=== PATIENT | male | born 1970 | race Caucasian/White ===

== ENCOUNTER → 2019-11-10 09:53 | Outpatient (CLI) | payer BC, SELFPAY ==
[2019-09-16 08:48] VITALS: BMI 26.1
--- NOTE | 2019-11-10 09:59 | US_ITS ---
STUDY: ABDOMINAL ULTRASOUND - RIGHT UPPER QUADRANT REASON FOR VISIT: Male, 49 years old ELEVATED LFTS TECHNIQUE: Ultrasound evaluation of the right upper quadrant was performed with real-time and static starkey-scale imaging. TECHNICAL QUALITY: Adequate. COMPARISON: None. FINDINGS: Liver: The liver measures 16 cm. There is normal echogenicity of the liver. The bile ducts are within normal limits. There is hepatic color flow. The direction of portal flow is hepatopetal. There is no demonstrated mass lesion. Gallbladder: Normal distended gallbladder. The gallbladder wall measures 2.9 mm. There is a negative sonographic Garcia''s sign. There is no pericholecystic fluid. There are no gallstones. Common Bile Duct (C.B.D.): The common bile duct measures 5.4 mm. Pancreas: There is normal echogenicity of the visualized pancreas. There is no demonstrated pancreatic mass or cyst. Right Kidney: Normal size of the right kidney. The right kidney measures 11.1 x 4.8 x 4.3 cm. Normal renal cortex. The right cortex measures 1.2 cm. There is no demonstrated renal mass or cyst. There is no right hydronephrosis. US/Liver IMPRESSION: 1. No hepatic masses or biliary dilation. 2. No gallstones or biliary obstruction. Electronically Signed: Kristian Beebe MD ([place]) at 12:52 EST , Service support ,
== END ==
PROVIDERS: Referring Provider Internal Medicine Endocrinology, Diabetes & Metabolism; Visit Provider Internal Medicine Endocrinology, Diabetes & Metabolism
DX: R94.5 Abnormal results of liver function studies (principal)
CPT/HCPCS: 76705

== ENCOUNTER → 2020-08-20 | Outpatient (CLI) | payer BC, SELFPAY ==
[2019-09-16 08:48] VITALS: BMI 26.1
== END | disposition home or self-care (01) ==
LOC: LABSPEC 12:19
PROVIDERS: Visit Provider Family Medicine
DX: Z12.5 Encounter for screening for malignant neoplasm of prostate (principal)
CPT/HCPCS: 84153; G0103

== ENCOUNTER → 2021-01-17 14:53 | Outpatient (CLI) | payer BC, SELFPAY ==
[2019-09-16 08:48] VITALS: BMI 26.1
[2021-01-17 17:53] LABS: Vitamin D,25 Hydroxy 30.6 ng/mL
[2021-01-17 18:06] LABS: CRP < 2.90 mg/L (0.0-3.0)
[2021-01-20 16:08] LABS: Endomysial Antibody IgA Negative (Negative)
[2021-01-20 16:45] LABS: Immunoglobulin A 348 mg/dL (90-386); t-Transglutaminase IgA <2 U/mL (0-3)
== END ==
PROVIDERS: PCP Family Medicine; Referring Provider Internal Medicine Gastroenterology; Visit Provider Internal Medicine Gastroenterology
DX: R19.7 Diarrhea, unspecified (principal)
CPT/HCPCS: 36415; 82306; 82784; 83516; 86140; 86255

== ENCOUNTER 2025-06-28 06:43 | Outpatient (CLI) | payer BC, SELFPAY ==
--- OUTSIDE RECORDS SUMMARY | 2025-06-28 06:47 | XMS RPT_ITS | CCD ---
Author Organization [facility] Team Providers Care Resistance Brazer Name Role Phone DEANGELO BATES MD Primary Care Physician DEANGELO BATES MD Attending Unavailable DEANGELO BATES MD Primary Care Unavailable DEANGELO BATES MD Primary Care Unavailable DEANGELO BATES MD Attending Unavailable DEANGELO BATES MD Attending Unavailable DEANGELO BATES MD Primary Care Unavailable Denagelo Bates Primary Care Unavailable BRITTNY HOLLINS Referring Unavailable BRITTNY HOLLINS Attending Unavailable DEANGELO BATES MD Attending Unavailable DEANGELO BATES MD Primary Care Unavailable DEANGELO BATES MD Primary Care Unavailable CONNIE SCHWARZ MD Attending Unavailable Medications Current Medications Medication Drug Class(es) Dates Sig (Normalized) Sig (Original) levothyroxine sodium 0.15 mg oral tablet (5 sources) l-Thyroxine Start: 06-03-2020 Synthroid 150 mcg (0.15 mg) oral tablet Dose : 150 mcg = 1 tab(s), Oral, qDay, # 90 tab(s), 0 Refill(s) Start Date: 06/03/20 Status: Ordered Medication Dispense Status: Completed Quantity: 90.0 Unit: tab(s) Total Allowed Fills: 1 Fills Dispensed: 0 magnesium oxide 250 mg oral tablet (3 sources) Start: 05-18-2024 Magnesium 250 mg tablet Dose : 250 mg = 1 tab(s), Oral, qDay, 0 Refill(s) Start Date: 05/18/24 Status: Ordered Medication Dispense Status: Completed Total Allowed Fills: 1 Fills Dispensed: 0 Misc Medication (2 sources) Start: 05-18-2024 Misc Medication 0 Refill(s), 85.3 Start Date: 05/18/24 Status: Ordered montelukast 10 mg oral tablet (1 source) Leukotriene Receptor Antagonist Start: 03-14-2021 Singulair 10 mg oral tablet Dose : 10 mg = 1 tab(s), Oral, qPM, # 30 tab(s), 5 Refill(s), [facility]acy: [id number], Allergic rhinitis Chronic GERD, 179.5, cm, 03/14/21 13:49:00 EDT, Height, kg, 03/14/21 13:49:00 EDT, Dosing Weight Start Date: 03/14/21 Status: Ordered Omeprazole (5 sources) Proton Pump Inhibitor Start: 06-03-2020 take 1 dose by mouth once daily as needed for gastroesophageal reflux disease omeprazole Oral, qDay, PRN Reflux, 0 Refill(s) Start Date: 06/03/20 Status: Ordered Medication Dispense Status: Completed Total Allowed Fills: 1 Fills Dispensed: 0 Start: 06-03-2020 omeprazole Ora l, qDay, PRN Reflux, 0 Refill(s) Start Date: 06/03/20 Status: Ordered sildenafil 100 mg oral tablet (3 sources) Phosphodiesterase 5 Inhibitor Start: 05-24-2025 sildenafil 100 mg or al tablet Dose : 100 mg = 1 tab(s), Oral, qDay, # 5 tab(s), 5 Refill(s), Pharmacy: [facility]/pharmacy #[id number], Well adult exam Chronic GERD, 180, cm, 05/24/25 8:32:00 EDT, Height, kg, 05/24/25 8:32:00 EDT, Dosing Weight Start Date: 05/24/25 Status: Ordered Medication Dispense Status: Completed Quantity: 5.0 Unit: tab(s) Total Allowed Fills: 6 Fills Dispensed: 0 Indications: Encounter for general adult medical examination without abnormal findings; Gastro-esophageal reflux disease without esophagitis; Start: 05-18-2024 sildenafil 100 mg oral tablet Dose : 100 mg = 1 tab(s), Oral, qDay, # 5 tab(s), 5 Refill(s), Pharmacy: [facility]/pharmacy #[id number], Well adult exam Chronic GERD, 181.5, cm, 05/18/24 7:51:00 EDT, Height, kg, 05/18/24 7:51:00 EDT, Dosing Weight Start Date: 05/18/24 Status: Ordered tadalafil 5 mg oral tablet (3 sources) Phosphodiesterase 5 Inhibitor Start: 05-24-2025 tadalafil 5 mg oral tablet Dose : 5 mg = 1 tab(s), Oral, qDay, # 30 tab(s), 11 Refill(s), [id number] Well adult exam Chronic GERD, 180, cm, 05/24/25 8:32:00 EDT, Height, kg, 05/24/25 8:32:00 EDT, Dosing Weight Start Date: 05/24/25 Status: Ordered Medication Dispense Status: Completed Quantity: 30.0 Unit: tab(s) Total Allowed Fills: 12 Fills Dispensed: 0 Indications: Encounter for general adult medical examination without abnormal findings; Gastro-esophageal reflux disease without esophagitis; Start: 05-18-2024 tadalafil 5 mg oral tablet Dose : 5 mg = 1 tab(s), Oral, qDay, # 30 tab(s), 11 Refill(s), [id number] Well adult exam Chronic GERD, 181.5, cm, 05/18/24 7:51:00 EDT, Height, kg, 05/18/24 7:51:00 EDT, Dosing Weight Start Date: 05/18/24 Status: Ordered tamsulosin hydrochloride 0.4 mg oral capsule (1 source) alpha-Adrenergic Jaylene Start: 07-26-2024 tamsu losin 0.4 mg oral capsule Dose : 0.4 mg = 1 cap(s), Oral, qDay, # 30 cap(s), 0 Refill(s), [id number], 181.5, cm, 05/18/24 7:51:00 EDT, Height, kg, 05/18/24 7:51:00 EDT, Dosing Weight Start Date: 07/26/24 Status: Ordered turmeric extract 500 mg oral capsule (4 sources) Start: 04-24-2022 turmeric 500 m g oral capsule Dose : 500 mg = 1 cap(s), Oral, Daily, 0 Refill(s) Start Date: 04/24/22 Status: Ordered Medication Dispense Status: Completed Total Allowed Fills: 1 Fills Dispensed: 0 Vitamin D3 (4 sources) Start: 04-24-2022 Vitamin D3 Dos e : 100 mcg = 1 tab(s), Oral, Daily, 0 Refill(s) Start Date: 04/24/22 Status: Ordered Medication Dispense Status: Completed Total Allowed Fills: 1 Fills Dispensed: 0 Start: 04-24-2022 Vitamin D3 Dos e : 100 mcg = 1 tab(s), Oral, Daily, 0 Refill(s) Start Date: 04/24/22 Status: Ordered Completed/Discontinued Medications Medication Drug Class(es) Dates Sig (Normalized) Sig (Original) Multi-Day Plus Minerals (5 sources) Start: 10-07-2020 take 1 dose by mouth once daily Multi-Day Plus Minerals Oral, qDay, 0 Refill(s) Start Date: 10/07/20 Status: Suspended Medication Dispense Status: Completed Total Allowed Fills: 1 Fills Dispensed: 0 Start: 10-07-2020 Multi-Day Plus Minerals Oral, qDay, 0 Refill(s) Start Date: 10/07/20 Status: Suspended Start: 10-07-2020 Multi-Day Plus Minerals Oral, qDay, 0 Refill(s) Start Date: 10/07/20 Status: Ordered Problems Problem Classification Problem Date Documented Da te Episodic/Chronic Cardiac dysrhythmias (5 sources) Palpitations 06-03-2020 Episodic Esophageal disorders (11 sources) Gastro-esophageal reflux disease with esophagitis; Translations: [Gastroesophageal reflux disease] 06-03-2020 Chronic Malaise and fatigue (5 sources) Fatigue 06-03-2020 Episodic Other connective tissue disease (1 source) Bursitis of left shoulder 12-25-2024 Episodic Other gastrointestinal disorders (6 sources) Irritable bowel syndrome; Translations: [Irritable bowel syndrome without diarrhea] 06-03-2020 Chronic Other inflammatory condition of skin (5 sources) Pityriasis rosea 06-03-2020 Chronic Other lower respiratory disease (3 sources) Snoring 08-12-2023 Episodic Other male genital disorders (3 sources) Impotence 05-18-2024 Chronic Other non-traumatic joint disorders (4 sources) Shoulder pain 06-17-2022 Episodic Other screening for suspected conditions (not mental disorders or infectious disease) (5 sources) Liver function tests abnormal 06-03-2020 Episodic Other upper respiratory disease (6 sources) Allergic rhinitis; Translations: [Allergic rhinitis, unspecified] 06-03-2020 Chronic Residual codes; unclassified (3 sources) Obstructive sleep apnea syndrome 05-18-2024 Chronic Residual codes; unclassified (1 source) Family history of ischemic heart disease and other diseases of the circulatory system; Translations: [Family history of ischemic heart disease and other diseases of the circulatory system] Onset: 06-12-2025 Episodic Spondylosis; intervertebral disc disorders; other back problems (4 sources) Cervical radiculitis 06-17-2022 Episodic Sprains and strains (1 source) Strain of neck muscle 12-25-2024 Episodic Thyroid disorders (6 sources) Hypothyroidism; Translations: [Hypothyroidism, unspecified] 06-03-2020 Chronic Unclassified (3 sources) Patient encounter status 08-12-2023 Results Test Name Value Interpretation Reference Range Facility .Auto Diffon 06-21-2025 Basophil, Absolute 0.0 10 3/mcL Normal 0.0-0.3 [facility] Comment on above: Performed By: #### G FR, VIDH, ANEU, CMP, CBC, MG, LIPID, ADIFF, PSA #### [address] [address] Basophils/100 WBC (Bld) 0.7 % Normal 0.0-2.[address] [facility] Comment on above: Performed By: #### G FR, VIDH, ANEU, CMP, CBC, MG, LIPID, ADIFF, PSA #### [address] [address] Eosinophil, Absolute 0.1 10 3/mcL Normal 0.0-0.7 [facility] Comment on above: Performed By: #### G FR, VIDH, ANEU, CMP, CBC, MG, LIPID, ADIFF, PSA #### [address] [address] Eosinophils/100 WBC (Bld) 2.7 % Normal 0.0-6.[address] [facility] Comment on above: Performed By: #### G FR, VIDH, ANEU, CMP, CBC, MG, LIPID, ADIFF, PSA #### [address] [address] Lymphocyte, Absolute 1.5 10 3/mcL Normal 0.9-4.3 [facility] Comment on above: Performed By: #### G FR, VIDH, ANEU, CMP, CBC, MG, LIPID, ADIFF, PSA #### [address] [address] Lymphocytes/100 WBC (Bld) 33.8 % Normal 20.0-40.[address] [facility] Comment on above: Performed By: #### G FR, VIDH, ANEU, CMP, CBC, MG, LIPID, ADIFF, PSA #### [address] [address] Monocyte, Absolute 0.4 10 3/mcL Normal 0.1-1.4 [facility] Comment on above: Performed By: #### G FR, VIDH, ANEU, CMP, CBC, MG, LIPID, ADIFF, PSA #### [address] [address] Monocytes/100 WBC (Bld) 10.3 % Normal 2.0-13.[address] [facility] Comment on above: Performed By: #### G FR, VIDH, ANEU, CMP, CBC, MG, LIPID, ADIFF, PSA #### [address] [address] Neutrophils/100 WBC (Bld) 52.5 % Normal 50.0-75.[address] [facility] Comment on above: Performed By: #### G FR, VIDH, ANEU, CMP, CBC, MG, LIPID, ADIFF, PSA #### [address] [address] .GFRon 06-21-2025 Estimated Glomerular Filtration Rate 85 ml/min/1.73sqm Normal [facility] Comment on above: Result Comment: Stages of Chronic Kidney Disease (CKD) Stage Description eGFR(ml/min/1.73 sq.m.) CKD 1 Normal kidney function or >=90 normal kindney function with possible kidney damage (ex. Proteinuria) CKD 2 Kidney damage with mild loss 60-89 of kidney function CKD 3a Mild to moderate loss of kidney 45-59 function CKD 3b Moderate to severe loss of 30-44 of kindey function CKD 4 Severe loss of kidney function 15-29 CKD 5 Kidney failure <15 Note: (go live 2024) the eGFR calculation was updated to the 2020 CKD-EPI creatinine equation without a race factor to calculate the eGFR results. Performed By: #### G FR, VIDH, ANEU, CMP, CBC, MG, LIPID, ADIFF, PSA #### [place] [id number] .NEUABSon 06-21-2025 Neutrophil, Absolute 2.3 10 3/mcL Normal 2.3-8.1 [facility] Comment on above: Performed By: #### G FR, VIDH, ANEU, CMP, CBC, MG, LIPID, ADIFF, PSA #### [place] [address] CBCon 06-21-2025 Erythrocyte distribution width (RBC) [Ratio] 13.0 % Normal 11.5-15.[address] [facility] Comment on above: Performed By: #### G FR, VIDH, ANEU, CMP, CBC, MG, LIPID, ADIFF, PSA #### [place] [address] Hematocrit (Bld) [Volume fraction] 42.9 % Normal 40.0-52.[address] [facility] Comment on above: Performed By: #### G FR, VIDH, ANEU, CMP, CBC, MG, LIPID, ADIFF, PSA #### [place] [address] Hgb 14.4 G/dL Normal 13.0-17.[address] [facility] Comment on above: Performed By: #### G FR, VIDH, ANEU, CMP, CBC, MG, LIPID, ADIFF, PSA #### [place] [address] MCH (RBC) [Entitic mass] 29.7 pg Normal 27.0-33.[address] [facility] Comment on above: Performed By: #### G FR, VIDH, ANEU, CMP, CBC, MG, LIPID, ADIFF, PSA #### [place] [address] MCHC 33.5 G/dL Normal 32.0-36.[address] [facility] Comment on above: Performed By: #### G FR, VIDH, ANEU, CMP, CBC, MG, LIPID, ADIFF, PSA #### [address] [address] MCV (RBC) [Entitic vol] 88.7 fL Normal 81.0-100.[address] [facility] Comment on above: Performed By: #### G FR, VIDH, ANEU, CMP, CBC, MG, LIPID, ADIFF, PSA #### [address] [address] Platelet 188 10 3/mcL Normal 150-[address] [facility] Comment on above: Performed By: #### G FR, VIDH, ANEU, CMP, CBC, MG, LIPID, ADIFF, PSA #### [place] [address] Platelet mean volume (Bld) [Entitic vol] 8.7 fL Normal 6.4-10.[address] [facility] Comment on above: Performed By: #### G FR, VIDH, ANEU, CMP, CBC, MG, LIPID, ADIFF, PSA #### [address] [address] RBC 4.84 10 6/mcL Normal 4.50-6.[address] [facility] Comment on above: Performed By: #### G FR, VIDH, ANEU, CMP, CBC, MG, LIPID, ADIFF, PSA #### [address] [address] WBC 4.4 10 3/mcL Low 4.5-10.[address] [facility] Comment on above: Performed By: #### G FR, VIDH, ANEU, CMP, CBC, MG, LIPID, ADIFF, PSA #### [address] [address] CMPon 06-21-2025 Albumin Level 3.4 G/dL Low 3.5-5.[address] [facility] Comment on above: Performed By: #### G FR, VIDH, ANEU, CMP, CBC, MG, LIPID, ADIFF, PSA #### [place] [address] Albumin/Globulin [Mass ratio] 1.1 {ratio} Normal 1.1-2.[address] [facility] Comment on above: Performed By: #### G FR, VIDH, ANEU, CMP, CBC, MG, LIPID, ADIFF, PSA #### [place] [address] ALP [Catalytic activity/Vol] 74 U/L Normal 40-[address] [facility] Comment on above: Performed By: #### G FR, VIDH, ANEU, CMP, CBC, MG, LIPID, ADIFF, PSA #### [place] [address] ALT [Catalytic activity/Vol] 36 U/L Normal 16-[address] [facility] Comment on above: Performed By: #### G FR, VIDH, ANEU, CMP, CBC, MG, LIPID, ADIFF, PSA #### [place] [address] AST [Catalytic activity/Vol] 19 U/L Normal 10-[address] [facility] Comment on above: Performed By: #### G FR, VIDH, ANEU, CMP, CBC, MG, LIPID, ADIFF, PSA #### [place] [address] Bili Total 0.5 mg/dL Normal 0.2-1.[address] [facility] Comment on above: Result Comment: Use of this assay is not recommended for patients undergoing treatment with eltrombopag due to the potential for falsely elevated results. Performed By: #### G FR, VIDH, ANEU, CMP, CBC, MG, LIPID, ADIFF, PSA #### [place] [address] BUN/Creatinine Ratio 12 ratio Normal 7-27 [facility] Comment on above: Performed By: #### G FR, VIDH, ANEU, CMP, CBC, MG, LIPID, ADIFF, PSA #### [place] [id number] Calcium [Mass/Vol] 8.8 mg/dL Normal 8.4-10.2 [facility] Comment on above: Performed By: #### G FR, VIDH, ANEU, CMP, CBC, MG, LIPID, ADIFF, PSA #### [address] [address] Chloride [Moles/Vol] 107 mmol/L Normal 98-107 [facility] Comment on above: Performed By: #### G FR, VIDH, ANEU, CMP, CBC, MG, LIPID, ADIFF, PSA #### [place] [address] CO2 [Moles/Vol] 29 mmol/L Normal 22-[address] [facility] Comment on above: Performed By: #### G FR, VIDH, ANEU, CMP, CBC, MG, LIPID, ADIFF, PSA #### [place] [address] Creatinine [Mass/Vol] 1.05 mg/dL Normal 0.67-1.17 [facility] Comment on above: Performed By: #### G FR, VIDH, ANEU, CMP, CBC, MG, LIPID, ADIFF, PSA #### [place] [address] Electrolyte Balance 5.0 mEq/L Normal 4.0-15.0 [facility] Comment on above: Performed By: #### G FR, VIDH, ANEU, CMP, CBC, MG, LIPID, ADIFF, PSA #### [address] [address] Globulin 3.2 G/dL Normal 2.7-4.[address] [facility] Comment on above: Performed By: #### G FR, VIDH, ANEU, CMP, CBC, MG, LIPID, ADIFF, PSA #### [place] [address] Glucose [Mass/Vol] 87 mg/dL Normal 70-105 [facility] Comment on above: Performed By: #### G FR, VIDH, ANEU, CMP, CBC, MG, LIPID, ADIFF, PSA #### [address] [address] Potassium [Moles/Vol] 3.9 mmol/L Normal 3.5-5.1 [facility] Comment on above: Performed By: #### G FR, VIDH, ANEU, CMP, CBC, MG, LIPID, ADIFF, PSA #### [place] [address] [place], [place] [address] Sodium [Moles/Vol] 141 mmol/L Normal 136-145 [facility] Comment on above: Performed By: #### G FR, VIDH, ANEU, CMP, CBC, MG, LIPID, ADIFF, PSA #### [address] [address] Total Protein 6.6 G/dL Normal 6.4-8.[address] [facility] Comment on above: Performed By: #### G FR, VIDH, ANEU, CMP, CBC, MG, LIPID, ADIFF, PSA #### [address] [address] Urea nitrogen [Mass/Vol] 13 mg/dL Normal 7-[address] [facility] Comment on above: Performed By: #### G FR, VIDH, ANEU, CMP, CBC, MG, LIPID, ADIFF, PSA #### [address] [address] LABORATORYOrdered By: SYSTEM SYSTEM on 06-21-2025 25-hydroxyvitamin D3 [Mass/Vol] 53.2 ng/mL Invalid Interpretation Code AO ADM SS Comment on above: Interpretive Data: I nterpretive Values Based on Total 25(OH) Vitamin D: Deficient <20 ng/mL Insufficient 20 - <30 ng/mL Sufficient 30-100 ng/mL Albumin BCP dye [Mass/Vol] 3.4 G/dL Low 3.5 - 5.0 G/dL AO ADM SS Albumin/Globulin [Mass ratio] 1.1 {ratio} Normal 1.1 - 2.5 ratio AO ADM SS ALP [Catalytic activity/Vol] 74 U/L Normal 40 - 135 U/L AO ADM SS ALT With P-5'-P [Catalytic activity/Vol] 36 U/L Normal 16 - 63 U/L AO ADM SS AST With P-5'-P [Catalytic activity/Vol] 19 U/L Normal 10 - 40 U/L AO ADM SS Basophils (Bld) [#/Vol] 0.0 103/mcL Normal 0.0 - 0.3 10^3/mcL AO Workflow SS Basophils/100 WBC (Bld) 0.7 % Normal 0.0 - 2.5 % AO Workflow SS Bilirubin [Mass/Vol] 0.5 mg/dL Normal 0.2 - 1 .0 mg/dL AO ADM SS Comment on above: Interpretive Data: U se of this assay is not recommended for patients undergoing treatment with eltrombopag due to the potential for falsely elevated results. Calcium [Mass/Vol] 8.8 mg/dL Normal 8.4 - 10. 2 mg/dL AO ADM SS Chloride [Moles/Vol] 107 mmol/L Normal 98 - 10 7 mmol/L AO ADM SS CO2 [Moles/Vol] 29 mmol/L Normal 22 - 29 mmol/L AO ADM SS Creatinine [Mass/Vol] 1.05 mg/dL Normal 0.67 - 1.17 mg/dL AO ADM SS Electrolyte Balance 5.0 mEq/L Normal 4.0 - 15 .0 mEq/L AO ADM SS Eosinophil, Absolute 0.1 103/mcL Normal 0.0 - 0 .7 10^3/mcL AO Workflow SS Eosinophils/100 WBC (Bld) 2.7 % Normal 0.0 - 6.0 % AO Workflow SS Erythrocyte distribution width (RBC) [Ratio] 13.0 % Normal 11.5 - 15.5 % AO Workflow SS Estimated Glomerular Filtration Rate 85 ml/min/1.73sqm Invalid Interpretation Code AO Chemistry S Comment on above: Interpretive Data: Stages of Chronic Kidney Disease (CKD) Stage Description eGFR(ml/min/1.73 sq.m.) CKD 1 Normal kidney function or >=90 normal kindney function with possible kidney damage (ex. Proteinuria) CKD 2 Kidney damage with mild loss 60-89 of kidney function CKD 3a Mild to moderate loss of kidney 45-59 function CKD 3b Moderate to severe loss of 30-44 of kindey function CKD 4 Severe loss of kidney function 15-29 CKD 5 Kidney failure <15 Note: (go live 2024) the eGFR calculation was updated to the 2020 CKD-EPI creatinine equation without a race factor to calculate the eGFR results. Globulin 3.2 G/dL Normal 2.7 - 4.4 G/dL AO ADM SS Glucose [Mass/Vol] 87 mg/dL Normal 70 - 105 mg/dL AO ADM SS Hematocrit (Bld) [Volume fraction] 42.9 % Normal 40.0 - 52.0 % AO Workflow SS Hemoglobin (Bld) [Mass/Vol] 14.4 G/dL Normal 13.0 - 17.5 G/dL AO Workflow SS Lymphocytes (Bld) [#/Vol] 1.5 103/mcL Normal 0.9 - 4.3 10^3/mcL AO Workflow SS Lymphocytes/100 WBC (Bld) 33.8 % Normal 20.0 - 40.0 % AO Workflow SS Magnesium [Mass/Vol] 1.9 mg/dL Normal 1.8 - 2 .4 mg/dL AO ADM SS MCH (RBC) [Entitic mass] 29.7 pg Normal 27.0 - 33.0 pg AO Workflow SS MCHC 33.5 G/dL Normal 32.0 - 36.0 G/dL AO Workflow SS MCV (RBC) [Entitic vol] 88.7 fL Normal 81.0 - 100.0 fL AO Workflow SS Monocytes (Bld) [#/Vol] 0.4 103/mcL Normal 0.1 - 1.4 10^3/mcL AO Workflow SS Monocytes/100 WBC (Bld) 10.3 % Normal 2.0 - 13.0 % AO Workflow SS Neutrophils (Bld) [#/Vol] 2.3 103/mcL Normal 2.3 - 8.1 10^3/mcL AO Workflow SS Neutrophils/100 WBC (Bld) 52.5 % Normal 50.0 - 75.0 % AO Workflow SS Platelet mean volume (Bld) [Entitic vol] 8.7 fL Normal 6.4 - 10.5 fL AO Workflow SS Platelets (Bld) [#/Vol] 188 103/mcL Normal 150 - 450 10^3/mcL AO Workflow SS Potassium [Moles/Vol] 3.9 mmol/L Normal 3.5 - 5.1 mmol/L AO ADM SS Prostate specific Ag [Mass/Vol] 0.91 ng/mL Normal 0.00 - 4.00 ng/mL AO ADM SS Protein [Mass/Vol] 6.6 G/dL Normal 6.4 - 8.2 G/dL AO ADM SS RBC (Bld) [#/Vol] 4.84 106/mcL Normal 4.50 - 6.0 0 10^6/mcL AO Workflow SS Sodium [Moles/Vol] 141 mmol/L Normal 136 - 145 mmol/L AO ADM SS Urea nitrogen [Mass/Vol] 13 mg/dL Normal 7 - 18 mg/dL AO ADM SS Urea nitrogen/Creatinine [Mass ratio] 12 ratio Normal 7 - 27 ratio AO ADM SS WBC (Bld) [#/Vol] 4.4 103/mcL Low 4.5 - 10.8 10^3/mcL AO Workflow SS LABORATORYOrdered By: Gabe Infante on 06-21-2025 Cholesterol [Mass/Vol] 176 mg/dL Normal 0 - 200 mg/dL AO ADM SS Comment on above: Interpretive Data: C holesterol Reference Interval: Less than 200 Desirable 200-239 Borderline high risk 240 and above High risk Cholesterol in HDL [Mass/Vol] 43 mg/dL Normal 40 - 60 mg/dL AO ADM SS Cholesterol in LDL [Mass/Vol] 108 mg/dL Normal 0 - 130 mg/dL AO ADM SS Triglyceride [Mass/Vol] 126 mg/dL Normal 0 - 150 mg/dL AO ADM SS Comment on above: Interpretive Data: T riglyceride Reference Interval: Less than 150 Normal 150-199 Borderline high risk 200-499 High risk 500 or higher Very high risk LIPIDon 06-21-2025 Cholesterol [Mass/Vol] 176 mg/dL Normal 0-200 [facility] Comment on above: Result Comment: Chol esterol Reference Interval: Less than 200 Desirable 200-239 Borderline high risk 240 and above High risk Performed By: #### G FR, VIDH, ANEU, CMP, CBC, MG, LIPID, ADIFF, PSA #### [place] [address] [place], [place] [address] Cholesterol in HDL [Mass/Vol] 43 mg/dL Normal 40-[address] [facility] Comment on above: Performed By: #### G FR, VIDH, ANEU, CMP, CBC, MG, LIPID, ADIFF, PSA #### [facility] [address] [place], [place] [address] Cholesterol in LDL [Mass/Vol] 108 mg/dL Normal 0-[address] [facility] Comment on above: Performed By: #### G FR, VIDH, ANEU, CMP, CBC, MG, LIPID, ADIFF, PSA #### [address] [address] Triglyceride [Mass/Vol] 126 mg/dL Normal 0-[address] [facility] Comment on above: Result Comment: Trig lyceride Reference Interval: Less than 150 Normal 150-199 Borderline high risk 200-499 High risk 500 or higher Very high risk Performed By: #### G FR, VIDH, ANEU, CMP, CBC, MG, LIPID, ADIFF, PSA #### [address] [address] MGon 06-21-2025 Magnesium [Mass/Vol] 1.9 mg/dL Normal 1.8-2.4 [facility] Comment on above: Performed By: #### G FR, VIDH, ANEU, CMP, CBC, MG, LIPID, ADIFF, PSA #### [address] [address] PSAon 06-21-2025 Prostate Specific Antigen 0.91 ng/mL Normal 0.00-4.[address] [facility] Comment on above: Performed By: #### G FR, VIDH, ANEU, CMP, CBC, MG, LIPID, ADIFF, PSA #### [address] [address] VIDHon 06-21-2025 Vit. D 25-Hydroxy 53.2 ng/mL Normal [facility] Comment on above: Result Comment: Inte rpretive Values Based on Total 25(OH) Vitamin D: Deficient <20 ng/mL Insufficient 20 - <30 ng/mL Sufficient 30-100 ng/mL Performed By: #### G FR, VIDH, ANEU, CMP, CBC, MG, LIPID, ADIFF, PSA #### [address] [address] LABORATORYOrdered By: SYSTEM SYSTEM on 09-05-2024 TSH Qn 0.55 m[IU]/L Normal 0.36 - 3.74 mcIU/mL AO ADM SS TSHon 09-05-2024 TSH Qn 0.55 m[IU]/L Normal 0.36-3.[address] [facility] Comment on above: Performed By: #### T #### [address] [address] .GFRon 07-11-2024 GFR 81 ml/min/1.73sqm Normal [facility] ([place]) Comment on above: Result Comment: GFR Population mean for , Non- Americans Ages 20-29 = 116 mL/min/1.73 sq.m. Ages 30-39 = 107 mL/min/1.73 sq.m. Ages 40-49 = 99 mL/min/1.73 sq.m. Ages 50-59 = 93 mL/min/1.73 sq.m. Ages 60-69 = 85 mL/min/1.73 sq.m. Ages 70+ = 75 mL/min/1.73 sq.m. Chronic Kidney Disease: Less than 60 mL/min/1.73 square meters End Stage Renal Disease: Less than 15 mL/min/1.73 square meters Performed By: #### L IPID, GFR, PSA, CMP #### [address] [address] GFR Non- 67 ml/min/1.73sqm Normal [facility] ([place]) Comment on above: Result Comment: GFR Population mean for , Non- Americans Ages 20-29 = 116 mL/min/1.73 sq.m. Ages 30-39 = 107 mL/min/1.73 sq.m. Ages 40-49 = 99 mL/min/1.73 sq.m. Ages 50-59 = 93 mL/min/1.73 sq.m. Ages 60-69 = 85 mL/min/1.73 sq.m. Ages 70+ = 75 mL/min/1.73 sq.m. Chronic Kidney Disease: Less than 60 mL/min/1.73 square meters End Stage Renal Disease: Less than 15 mL/min/1.73 square meters Performed By: #### L IPID, GFR, PSA, CMP #### [address] [address] CMPon 07-11-2024 Albumin Level 4.0 G/dL Normal 3.5-5.0 [facility] ([place]) Comment on above: Performed By: #### L IPID, GFR, PSA, CMP #### [address] [address] Albumin/Globulin [Mass ratio] 1.1 {ratio} Normal 1.1-2.5 [facility] ([place]) Comment on above: Performed By: #### L IPID, GFR, PSA, CMP #### [address] [address] ALP [Catalytic activity/Vol] 77 U/L Normal 40-135 [facility] ([place]) Comment on above: Performed By: #### L IPID, GFR, PSA, CMP #### [address] [address] ALT [Catalytic activity/Vol] 45 U/L Normal 16-63 [facility] ([place] Comment on above: Performed By: #### L IPID, GFR, PSA, CMP #### [address] [address] AST [Catalytic activity/Vol] 21 U/L Normal 10-40 [facility] ([place] Comment on above: Performed By: #### L IPID, GFR, PSA, CMP #### [address] [address] Bili Total 0.5 mg/dL Normal 0.2-1.0 [facility] ([place] Comment on above: Result Comment: Use of this assay is not recommended for patients undergoing treatment with eltrombopag due to the potential for falsely elevated results. Performed By: #### L IPID, GFR, PSA, CMP #### [address] [address] BUN/Creatinine Ratio 11 ratio Normal 7-27 [facility] ([place]) Comment on above: Performed By: #### L IPID, GFR, PSA, CMP #### [address] [address] Calcium [Mass/Vol] 9.0 mg/dL Normal 8.4-10.2 [facility] ([place]) Comment on above: Performed By: #### L IPID, GFR, PSA, CMP #### [address] [address] Chloride [Moles/Vol] 102 mmol/L Normal 98-107 [facility] ([place] Comment on above: Performed By: #### L IPID, GFR, PSA, CMP #### [address] [address] CO2 [Moles/Vol] 29 mmol/L Normal 22-29 Counts include 234 beds at the [facility] ([place]) Comment on above: Performed By: #### L IPID, GFR, PSA, CMP #### [address] [address] Creatinine [Mass/Vol] 1.15 mg/dL Normal 0.70-1.30 [facility] ([place]) Comment on above: Result Comment: Test ing performed on Siemens Dimension EXL analyzer using a modified kinetic Maurice technique. Performed By: #### L IPID, GFR, PSA, CMP #### [address] [address] Electrolyte Balance 8.0 mEq/L Normal 4.0-15.0 [facility] ([place]) Comment on above: Performed By: #### L IPID, GFR, PSA, CMP #### [address] [address] Globulin 3.5 G/dL Normal [facility] ([place] Comment on above: Performed By: #### L IPID, GFR, PSA, CMP #### [address] [address] Glucose [Mass/Vol] 84 mg/dL Normal 70-105 [facility] ([place] Comment on above: Performed By: #### L IPID, GFR, PSA, CMP #### [address] [address] Potassium [Moles/Vol] 4.3 mmol/L Normal 3.5-5.1 [facility] ([place] Comment on above: Performed By: #### L IPID, GFR, PSA, CMP #### [facility] [address] [place], [place] [address] Sodium [Moles/Vol] 139 mmol/L Normal 136-145 [facility] ([place] Comment on above: Performed By: #### L IPID, GFR, PSA, CMP #### [address] [place], [place] [address] Total Protein 7.5 G/dL Normal 6.4-8.2 [facility] ([place] Comment on above: Performed By: #### L IPID, GFR, PSA, CMP #### [address] [place], [place] [address] Urea nitrogen [Mass/Vol] 13 mg/dL Normal 7-18 [facility] ([place] Comment on above: Performed By: #### L IPID, GFR, PSA, CMP #### [address] [place], [place] [address] LABORATORYOrdered By: SYSTEM SYSTEM on 07-11-2024 Albumin BCP dye [Mass/Vol] 4.0 G/dL Normal 3.5 - 5.0 G/dL AO ADM SS Albumin/Globulin [Mass ratio] 1.1 {ratio} Normal 1.1 - 2.5 ratio AO ADM SS ALP [Catalytic activity/Vol] 77 U/L Normal 40 - 135 U/L AO ADM SS ALT With P-5'-P [Catalytic activity/Vol] 45 U/L Normal 16 - 63 U/L AO ADM SS AST With P-5'-P [Catalytic activity/Vol] 21 U/L Normal 10 - 40 U/L AO ADM SS Bilirubin [Mass/Vol] 0.5 mg/dL Normal 0.2 - 1 .0 mg/dL AO ADM SS Comment on above: Interpretive Data: U se of this assay is not recommended for patients undergoing treatment with eltrombopag due to the potential for falsely elevated results. Calcium [Mass/Vol] 9.0 mg/dL Normal 8.4 - 10. 2 mg/dL AO ADM SS Chloride [Moles/Vol] 102 mmol/L Normal 98 - 10 7 mmol/L AO ADM SS CO2 [Moles/Vol] 29 mmol/L Normal 22 - 29 mmol/L AO ADM SS Creatinine [Mass/Vol] 1.15 mg/dL Normal 0.70 - 1.30 mg/dL AO ADM SS Comment on above: Interpretive Data: T esting performed on Siemens Dimension EXL analyzer using a modified kinetic Maurice technique. Electrolyte Balance 8.0 mEq/L Normal 4.0 - 15 .0 mEq/L AO ADM SS GFR/1.73 sq M.predicted among blacks MDRD (S/P/Bld) [Vol rate/Area] 81 ml/min/1.73sqm Invalid Interpretation Code AO Chemistry S Comment on above: Interpretive Data: GFR Population mean for , Non- Americans Ages 20-29 = 116 mL/min/1.73 sq.m. Ages 30-39 = 107 mL/min/1.73 sq.m. Ages 40-49 = 99 mL/min/1.73 sq.m. Ages 50-59 = 93 mL/min/1.73 sq.m. Ages 60-69 = 85 mL/min/1.73 sq.m. Ages 70+ = 75 mL/min/1.73 sq.m. Chronic Kidney Disease: Less than 60 mL/min/1.73 square meters End Stage Renal Disease: Less than 15 mL/min/1.73 square meters GFR/1.73 sq M.predicted among non-blacks MDRD (S/P/Bld) [Vol rate/Area] 67 ml/min/1.73sqm Invalid Interpretation Code AO Chemistry S Comment on above: Interpretive Data: GFR Population mean for , Non- Americans Ages 20-29 = 116 mL/min/1.73 sq.m. Ages 30-39 = 107 mL/min/1.73 sq.m. Ages 40-49 = 99 mL/min/1.73 sq.m. Ages 50-59 = 93 mL/min/1.73 sq.m. Ages 60-69 = 85 mL/min/1.73 sq.m. Ages 70+ = 75 mL/min/1.73 sq.m. Chronic Kidney Disease: Less than 60 mL/min/1.73 square meters End Stage Renal Disease: Less than 15 mL/min/1.73 square meters Globulin 3.5 G/dL Invalid Interpretation Code AO ADM SS Glucose [Mass/Vol] 84 mg/dL Normal 70 - 105 mg/dL AO ADM SS Potassium [Moles/Vol] 4.3 mmol/L Normal 3.5 - 5.1 mmol/L AO ADM SS Prostate specific Ag [Mass/Vol] 1.12 ng/mL Normal 0.00 - 4.00 ng/mL AO ADM SS Protein [Mass/Vol] 7.5 G/dL Normal 6.4 - 8.2 G/dL AO ADM SS Sodium [Moles/Vol] 139 mmol/L Normal 136 - 145 mmol/L AO ADM SS Urea nitrogen [Mass/Vol] 13 mg/dL Normal 7 - 18 mg/dL AO ADM SS Urea nitrogen/Creatinine [Mass ratio] 11 ratio Normal 7 - 27 ratio AO ADM SS LABORATORYOrdered By: Gabe Infante on 07-11-2024 Cholesterol [Mass/Vol] 177 mg/dL Normal 0 - 200 mg/dL AO ADM SS Comment on above: Interpretive Data: C holesterol Reference Interval: Less than 200 Desirable 200-239 Borderline high risk 240 and above High risk Cholesterol in HDL [Mass/Vol] 42 mg/dL Normal 40 - 60 mg/dL AO ADM SS Cholesterol in LDL [Mass/Vol] 116 mg/dL Normal 0 - 130 mg/dL AO ADM SS Triglyceride [Mass/Vol] 96 mg/dL Normal 0 - 150 mg/dL AO ADM SS Comment on above: Interpretive Data: T riglyceride Reference Interval: Less than 150 Normal 150-199 Borderline high risk 200-499 High risk 500 or higher Very high risk LIPIDon 07-11-2024 Cholesterol [Mass/Vol] 177 mg/dL Normal 0-200 [facility] [place] Comment [place]: Result Comment: Chol esterol Reference Interval: Less than 200 Desirable 200-239 Borderline high risk 240 and above High risk Performed By: #### L IPID, GFR, PSA, CMP #### [address] [address] Cholesterol in HDL [Mass/Vol] 42 mg/dL Normal 40-60 [facility] ([place] Comment on above: Performed By: #### L IPID, GFR, PSA, CMP #### [address] [place], [place] [address] Cholesterol in LDL [Mass/Vol] 116 mg/dL Normal 0-130 [facility] ([place] Comment on above: Performed By: #### L IPID, GFR, PSA, CMP #### [address] [place], [place] [address] Triglyceride [Mass/Vol] 96 mg/dL Normal 0-150 [facility] ([place] Comment on above: Result Comment: Trig lyceride Reference Interval: Less than 150 Normal 150-199 Borderline high risk 200-499 High risk 500 or higher Very high risk Performed By: #### L IPID, GFR, PSA, CMP #### [address] [place], [place] [address] PSAon 07-11-2024 Prostate Specific Antigen 1.12 ng/mL Normal 0.00-4.00 [facility] ([place] Comment on above: Performed By: #### L IPID, GFR, PSA, CMP #### [address] [place], [place] [address] CNOVon 09-24-2023 CNOV Office Visit (PEDSWS) TAWNYA GREENWOOD ([id number]) 1970 M Date Time Provider Department 09/24/23 11:00 AM NURSE RAFIA ROCA PEDSWS During your visit today, we recorded the following information about you: Allergies As of Date: 09/24/2023 (Not on File) Date Reviewed: Never Reviewed Reason for Visit: Imm/Inj [58] Cmt: Flu Vaccine Primary Visit Diagnosis:Encount er for immunization [Z23] Order(s):INFLUENZ A VACCINE, AGE 6 MO - 64 YR, QUADRIVALENT (AFLURIA, FLULAVAL, FLUZONE) [[id number]] Order #: [id number] Problem List As Of Date 09/24/2023 Noted Resolved Other specified procreative management [Z31.89] 05/04/2013 Encounter Status:Closed by LEON SMITH on 09/24/23 Normal [facility] LIPOAon 08-18-2023 Lipoprotein a [Mass/Vol] 20 mg/dL Normal <30 [facility] ([place] Comment on above: Result Comment: Perf ormed By: [facility] [address] [address] Floor Tech: Mian Reed III, M.D. CLIA#: [id number] Performed By: #### L IPID, GFR, PSA, CMP #### [address] [address] .Auto Diffon 08-17-2023 Basophil, Absolute 0.0 10 3/mcL Normal 0.0-0.2 [facility] ([place] Comment on above: Performed By: #### C BC, LIPID, GFR, PSA, TSH, ANEU, LPA, VIDH, FT3, CMP, ADIFF, FT4 #### [address] [address] Basophils/100 WBC (Bld) 0.6 % Normal 0.0-2.5 [facility] ([place] Comment on above: Performed By: #### C BC, LIPID, GFR, PSA, TSH, ANEU, LPA, VIDH, FT3, CMP, ADIFF, FT4 #### [address] [address] Eosinophil, Absolute 0.2 10 3/mcL Normal 0.0-0.4 [facility] [place] Comment on above: Performed By: #### C BC, LIPID, GFR, PSA, TSH, ANEU, LPA, VIDH, FT3, CMP, ADIFF, FT4 #### [address] [address] Eosinophils/100 WBC (Bld) 3.1 % Normal 0.0-7.0 [facility] ([place] Comment on above: Performed By: #### C BC, LIPID, GFR, PSA, TSH, ANEU, LPA, VIDH, FT3, CMP, ADIFF, FT4 #### [address] [address] Lymphocyte, Absolute 1.7 10 3/mcL Normal 0.8-3.9 [facility] [place] Comment [place] above: Performed By: #### C BC, LIPID, GFR, PSA, TSH, ANEU, LPA, VIDH, FT3, CMP, ADIFF, FT4 #### [address] [address] Lymphocytes/100 WBC (Bld) 29.8 % Normal 10.0-50.0 [facility] ([place] Comment on above: Performed By: #### C BC, LIPID, GFR, PSA, TSH, ANEU, LPA, VIDH, FT3, CMP, ADIFF, FT4 #### [address] [address] Monocyte, Absolute 0.5 10 3/mcL Normal 0.2-1.0 [facility] ([place] Comment on above: Performed By: #### C BC, LIPID, GFR, PSA, TSH, ANEU, LPA, VIDH, FT3, CMP, ADIFF, FT4 #### [address] [address] Monocytes/100 WBC (Bld) 9.7 % Normal 1.7-13.0 [facility] ([place] Comment on above: Performed By: #### C BC, LIPID, GFR, PSA, TSH, ANEU, LPA, VIDH, FT3, CMP, ADIFF, FT4 #### [address] [address] Neutrophils/100 WBC (Bld) 56.8 % Normal 37.0-80.0 [facility] ([place] Comment on above: Performed By: #### C BC, LIPID, GFR, PSA, TSH, ANEU, LPA, VIDH, FT3, CMP, ADIFF, FT4 #### [address] [address] .GFRon 08-17-2023 GFR 87 ml/min/1.73sqm Normal [facility] ([place]) Comment on above: Result Comment: GFR Population mean for , Non- Americans Ages 20-29 = 116 mL/min/1.73 sq.m. Ages 30-39 = 107 mL/min/1.73 sq.m. Ages 40-49 = 99 mL/min/1.73 sq.m. Ages 50-59 = 93 mL/min/1.73 sq.m. Ages 60-69 = 85 mL/min/1.73 sq.m. Ages 70+ = 75 mL/min/1.73 sq.m. Chronic Kidney Disease: Less than 60 mL/min/1.73 square meters End Stage Renal Disease: Less than 15 mL/min/1.73 square meters Performed By: #### L IPID, GFR, PSA, CMP #### [address] [address] GFR Non- 72 ml/min/1.73sqm Normal [facility] ([place] Comment on above: Result Comment: GFR Population mean for , Non- Americans Ages 20-29 = 116 mL/min/1.73 sq.m. Ages 30-39 = 107 mL/min/1.73 sq.m. Ages 40-49 = 99 mL/min/1.73 sq.m. Ages 50-59 = 93 mL/min/1.73 sq.m. Ages 60-69 = 85 mL/min/1.73 sq.m. Ages 70+ = 75 mL/min/1.73 sq.m. Chronic Kidney Disease: Less than 60 mL/min/1.73 square meters End Stage Renal Disease: Less than 15 mL/min/1.73 square meters Performed By: #### L IPID, GFR, PSA, CMP #### [address] [address] .NEUABSon 08-17-2023 Neutrophil, Absolute 3.2 10 3/mcL Normal 2.9-6.2 [facility] [place] Comment [place] above: Performed By: #### C BC, LIPID, GFR, PSA, TSH, ANEU, LPA, VIDH, FT3, CMP, ADIFF, FT4 #### [address] [address] CBCon 08-17-2023 Erythrocyte distribution width (RBC) [Ratio] 12.7 % Normal 11.5-14.5 [facility] ([place] Comment on above: Performed By: #### C BC, LIPID, GFR, PSA, TSH, ANEU, LPA, VIDH, FT3, CMP, ADIFF, FT4 #### [address] Hematocrit (Bld) [Volume fraction] 41.8 % Low 42.0-52.0 [facility] ([place] Comment on above: Performed By: #### C BC, LIPID, GFR, PSA, TSH, ANEU, LPA, VIDH, FT3, CMP, ADIFF, FT4 #### [place] [address] Hgb 14.1 G/dL Normal 14.0-18.0 [facility] ([place] Comment on above: Performed By: #### C BC, LIPID, GFR, PSA, TSH, ANEU, LPA, VIDH, FT3, CMP, ADIFF, FT4 #### [address] MCH (RBC) [Entitic mass] 29.3 pg Normal 27.0-31.2 [facility] ([place] Comment on above: Performed By: #### C BC, LIPID, GFR, PSA, TSH, ANEU, LPA, VIDH, FT3, CMP, ADIFF, FT4 #### [address] MCHC 33.7 G/dL Normal 31.8-35.4 [facility] ([place] Comment on above: Performed By: #### C BC, LIPID, GFR, PSA, TSH, ANEU, LPA, VIDH, FT3, CMP, ADIFF, FT4 #### [address] [address] MCV (RBC) [Entitic vol] 86.8 fL Normal 80.0-94.0 [facility] ([place] Comment on above: Performed By: #### C BC, LIPID, GFR, PSA, TSH, ANEU, LPA, VIDH, FT3, CMP, ADIFF, FT4 #### [id number] Platelet 222 10 3/mcL Normal 130-400 [facility] ([place] Comment on above: Performed By: #### C BC, LIPID, GFR, PSA, TSH, ANEU, LPA, VIDH, FT3, CMP, ADIFF, FT4 #### [address] [address] Platelet mean volume (Bld) [Entitic vol] 8.2 fL Normal 7.4-10.4 [facility] ([place] Comment on above: Performed By: #### C BC, LIPID, GFR, PSA, TSH, ANEU, LPA, VIDH, FT3, CMP, ADIFF, FT4 #### [address] [address] RBC 4.82 10 6/mcL Normal 4.04-6.13 [facility] ([place] Comment on above: Performed By: #### C BC, LIPID, GFR, PSA, TSH, ANEU, LPA, VIDH, FT3, CMP, ADIFF, FT4 #### [address] [address] WBC 5.6 10 3/mcL Normal 4.6-10.8 [facility] ([place] Comment on above: Performed By: #### C BC, LIPID, GFR, PSA, TSH, ANEU, LPA, VIDH, FT3, CMP, ADIFF, FT4 #### [address] [address] CMPon 08-17-2023 Albumin Level 3.7 G/dL Normal 3.5-5.0 [facility] ([place] Comment on above: Performed By: #### L IPID, GFR, PSA, CMP #### [address] [address] Albumin/Globulin [Mass ratio] 1.1 {ratio} Normal 1.1-2.5 [facility] ([place] Comment on above: Performed By: #### L IPID, GFR, PSA, CMP #### [address] [address] ALP [Catalytic activity/Vol] 80 U/L Normal 40-135 [facility] ([place] Comment on above: Performed By: #### L IPID, GFR, PSA, CMP #### [address] [address] ALT [Catalytic activity/Vol] 56 U/L Normal 16-63 [facility] ([place] Comment on above: Performed By: #### L IPID, GFR, PSA, CMP #### [address] [address] AST [Catalytic activity/Vol] 25 U/L Normal 10-40 [facility] ([place] Comment on above: Performed By: #### L IPID, GFR, PSA, CMP #### [address] [address] Bili Total 0.4 mg/dL Normal 0.2-1.0 [facility] ([place] Comment on above: Result Comment: Use of this assay is not recommended for patients undergoing treatment with eltrombopag due to the potential for falsely elevated results. Performed By: #### L IPID, GFR, PSA, CMP #### [address] [address] BUN/Creatinine Ratio 15 ratio Normal 7-27 [facility] ([place] Comment on above: Performed By: #### L IPID, GFR, PSA, CMP #### [address] [address] Calcium [Mass/Vol] 8.6 mg/dL Normal 8.4-10.2 [facility] ([place] Comment on above: Performed By: #### L IPID, GFR, PSA, CMP #### [address] [address] Chloride [Moles/Vol] 103 mmol/L Normal 98-107 [facility] ([place] Comment on above: Performed By: #### L IPID, GFR, PSA, CMP #### [address] [address] CO2 [Moles/Vol] 31 mmol/L High 22-29 Counts include 234 beds at the [facility] [place] Comment on above: Performed By: #### L IPID, GFR, PSA, CMP #### [address] [address] Creatinine [Mass/Vol] 1.08 mg/dL Normal 0.70-1.30 [facility] ([place] Comment on above: Performed By: #### L IPID, GFR, PSA, CMP #### [address] [address] Electrolyte Balance 6.0 mEq/L Normal 4.0-15.0 [facility] ([place] Comment on above: Performed By: #### L IPID, GFR, PSA, CMP #### [address] [address] Globulin 3.5 G/dL Normal [facility] ([place] Comment on above: Performed By: #### L IPID, GFR, PSA, CMP #### [address] [address] Glucose [Mass/Vol] 92 mg/dL Normal 70-105 [facility] ([place] Comment on above: Performed By: #### L IPID, GFR, PSA, CMP #### [address] [address] Potassium [Moles/Vol] 4.2 mmol/L Normal 3.5-5.1 [facility] ([place] Comment on above: Performed By: #### L IPID, GFR, PSA, CMP #### [address] [address] Sodium [Moles/Vol] 140 mmol/L Normal 136-145 [facility] [place] Comment on above: Performed By: #### L IPID, GFR, PSA, CMP #### [address] [address] Total Protein 7.2 G/dL Normal 6.4-8.2 [facility] ([place] Comment on above: Performed By: #### L IPID, GFR, PSA, CMP #### [address] [address] Urea nitrogen [Mass/Vol] 16 mg/dL Normal 7-18 [facility] ([place] Comment on above: Performed By: #### L IPID, GFR, PSA, CMP #### [address] [address] FT3on 08-17-2023 Free T3 [Mass/Vol] 3.00 pg/mL Normal 2.30-4.00 [facility] ([place] Comment on above: Performed By: #### C BC, LIPID, GFR, PSA, TSH, ANEU, LPA, VIDH, FT3, CMP, ADIFF, FT4 #### [address] [address] FT4on 08-17-2023 Free T4 [Mass/Vol] 1.32 ng/dL Normal 0.76-1.46 [facility] ([place] Comment on above: Performed By: #### C BC, LIPID, GFR, PSA, TSH, ANEU, LPA, VIDH, FT3, CMP, ADIFF, FT4 #### [address] [address] LIPIDon 08-17-2023 Cholesterol [Mass/Vol] 183 mg/dL Normal 0-200 [facility] [place] Comment on above: Result Comment: Chol esterol Reference Interval: Less than 200 Desirable 200-239 Borderline high risk 240 and above High risk Performed By: #### L IPID, GFR, PSA, CMP #### [address] [address] Cholesterol in HDL [Mass/Vol] 33 mg/dL Low 40-60 [facility] ([place] Comment on above: Performed By: #### L IPID, GFR, PSA, CMP #### [address] [address] Cholesterol in LDL [Mass/Vol] 102 mg/dL Normal 0-130 [facility] ([place] Comment on above: Performed By: #### L IPID, GFR, PSA, CMP #### [address] [address] Triglyceride [Mass/Vol] 240 mg/dL High 0-150 [facility] ([place] Comment on above: Result Comment: Trig lyceride Reference Interval: Less than 150 Normal 150-199 Borderline high risk 200-499 High risk 500 or higher Very high risk Performed By: #### L IPID, GFR, PSA, CMP #### [address] [address] PSAon 08-17-2023 Prostate Specific Antigen 0.93 ng/mL Normal 0.00-4.00 [facility] ([place] Comment on above: Performed By: #### L IPID, GFR, PSA, CMP #### [address] [address] TSHon 08-17-2023 TSH Qn 1.36 m[IU]/L Normal 0.36-3.74 [facility] ([place] Comment on above: Performed By: #### C BC, LIPID, GFR, PSA, TSH, ANEU, LPA, VIDH, FT3, CMP, ADIFF, FT4 #### [address] [address] VIDHon 08-17-2023 Vit. D 25-Hydroxy 45.1 ng/mL Normal [facility] ([place] Comment on above: Result Comment: Inte rpretive Values Based on Total 25(OH) Vitamin D: Deficient <20 ng/mL Insufficient 20 - <30 ng/mL Sufficient 30-100 ng/mL Performed By: #### L IPID, GFR, PSA, CMP #### [address] [address] LABORATORYOrdered By: Yessi Qureshi on 09-07-2022 Albumin BCP dye [Mass/Vol] 3.6 G/dL Invalid Interpretation Code 3.5 - 5.0 G/dL AO ADM SS Albumin/Globulin [Mass ratio] 1.2 {ratio} Invalid Interpretation Code 1.1 - 2.5 ratio AO ADM SS ALP [Catalytic activity/Vol] 73 U/L Invalid Interpretation Code 40 - 135 U/L AO ADM SS ALT With P-5'-P [Catalytic activity/Vol] 41 U/L Invalid Interpretation Code 16 - 63 U/L AO ADM SS AST With P-5'-P [Catalytic activity/Vol] 25 U/L Invalid Interpretation Code 10 - 40 U/L AO ADM SS Bilirubin [Mass/Vol] 0.4 mg/dL Invalid Interpretation Code 0.2 - 1.0 mg/dL AO ADM SS Calcium [Mass/Vol] 8.9 mg/dL Invalid Interpretation Code 8.4 - 10.2 mg/dL AO ADM SS Chloride [Moles/Vol] 105 mmol/L Invalid Interpretation Code 98 - 107 mmol/L AO ADM SS CO2 [Moles/Vol] 29 mmol/L Invalid Interpretation Code 22 - 29 mmol/L AO ADM SS Creatinine [Mass/Vol] 1.16 mg/dL Invalid Interpretation Code 0.70 - 1.30 mg/dL AO ADM SS Electrolyte Balance 8.0 mEq/L Invalid Interpretation Code 4.0 - 15.0 mEq/L AO ADM SS Globulin 2.9 G/dL Invalid Interpretation Code AO ADM SS Glucose [Mass/Vol] 104 mg/dL Invalid Interpretation Code 70 - 105 mg/dL AO ADM SS Potassium [Moles/Vol] 4.2 mmol/L Invalid Interpretation Code 3.5 - 5.1 mmol/L AO ADM SS Protein [Mass/Vol] 6.5 G/dL Invalid Interpretation Code 6.4 - 8.2 G/dL AO ADM SS Sodium [Moles/Vol] 142 mmol/L Invalid Interpretation Code 136 - 145 mmol/L AO ADM SS TSH Qn 1.00 m[IU]/L Invalid Interpretation Code 0.36 - 3.74 mcIU/mL AO ADM SS Urea nitrogen [Mass/Vol] 19 mg/dL Invalid Interpretation Code 7 - 18 mg/dL AO ADM SS Urea nitrogen/Creatinine [Mass ratio] 16 ratio Invalid Interpretation Code 7 - 27 ratio AO ADM SS LABORATORYOrdered By: SYSTEM SYSTEM on 09-07-2022 GFR 81 ml/min/1.73sqm Invalid Interpretation Code AO Chemistry S GFR Non- 67 ml/min/1.73sqm Invalid Interpretation Code AO Chemistry S LABORATORYOrdered By: Tanner Dixon on 09-08-2021 ALT With P-5'-P [Catalytic activity/Vol] 37 U/L Invalid Interpretation Code 16 - 63 U/L AO ADM SS AST With P-5'-P [Catalytic activity/Vol] 19 U/L Invalid Interpretation Code 10 - 40 U/L AO ADM SS Calcium [Mass/Vol] 9.0 mg/dL Invalid Interpretation Code 8.4 - 10.2 mg/dL AO ADM SS Chloride [Moles/Vol] 103 mmol/L Invalid Interpretation Code 98 - 107 mmol/L AO ADM SS CO2 [Moles/Vol] 31 mmol/L Invalid Interpretation Code 22 - 29 mmol/L AO ADM SS Creatinine [Mass/Vol] 1.01 mg/dL Invalid Interpretation Code 0.70 - 1.30 mg/dL AO ADM SS Electrolyte Balance 7.0 mEq/L Invalid Interpretation Code AO ADM SS Glucose [Mass/Vol] 83 mg/dL Invalid Interpretation Code 70 - 105 mg/dL AO ADM SS Potassium [Moles/Vol] 4.4 mmol/L Invalid Interpretation Code 3.5 - 5.1 mmol/L AO ADM SS Sodium [Moles/Vol] 141 mmol/L Invalid Interpretation Code 136 - 145 mmol/L AO ADM SS TSH Qn 1.90 m[IU]/L Invalid Interpretation Code 0.36 - 3.74 mcIU/mL AO ADM SS Urea nitrogen [Mass/Vol] 13 mg/dL Invalid Interpretation Code 7 - 18 mg/dL AO ADM SS Urea nitrogen/Creatinine [Mass ratio] 13 ratio Invalid Interpretation Code 7 - 27 ratio AO ADM SS LABORATORYOrdered By: SYSTEM SYSTEM on 09-08-2021 GFR 95 ml/min/1.73sqm Invalid Interpretation Code AO Chemistry S GFR Non- 79 ml/min/1.73sqm Invalid Interpretation Code AO Chemistry S Testosterone [Mass/Vol] 322.53 ng/dL Invalid Interpretation Code 123.06 - 813.86 ng/dL AH ADM SS Encounters Encounter Date Encounter Type Care Provider Facility Start: 06-28-2025 ambulatory Deangelo Bates Facility: [facility] Start: 06-21-2025 End: 06-21-2025 ambulatory DEANGELO BATES MD Facility:[facility] [place] Start: 06-21-2025 End: 06-21-2025 Patient encounter procedure DEANGELO BATES MD [facility] Start: 09-05-2024 End: 09-05-2024 ambulatory DEANGELO BATES MD Facility:[facility] [place] Start: 09-05-2024 End: 09-05-2024 Patient encounter procedure CONNIE SCHWARZ MD [facility] Start: 07-11-2024 End: 07-11-2024 ambulatory DEANGELO BATES MD Facility:[facility] Start: 07-11-2024 End: 07-11-2024 Patient encounter procedure DEANGELO BATES MD [facility] Start: 07-11-2024 End: 07-11-2024 Well adult monitoring check done DEANGELO BATES MD [facility] Start: 11-05-2023 End: 11-05-2023 ambulatory DEANGELO BATES MD Facility:[facility] Start: 09-24-2023 End: 09-24-2023 ambulatory Facility:[facility] Start: 08-17-2023 End: 08-17-2023 ambulatory DEANGELO BATES MD Facility:B Start: 09-07-2022 End: 09-07-2022 Patient encounter procedure CONNIE SCHWARZ MD [facility] Start: 09-08-2021 End: 09-08-2021 Patient encounter procedure CONNIE SCHWARZ MD [facility] Procedures Date Procedure Procedure Detail Performing Clinician Start: 11-08-1984 Appendectomy CONNIE HAMMOND MD Esophagogastroduodenoscopy S EDELMIRA SCHWARZ MD Vasectomy DEANGELO Kovacs Comment on above: 2022 Immunizations Immunization Date Immunization Notes Care Provider [facility] 05-24-2025 tetanus toxoid, redu leyla diphtheria toxoid, and acellular pertussis vaccine, adsorbed; Translations: [Boostrix (Tdap)] DEANGELO BATES MD [facility] 05-24-2025 zoster vaccine recombinant; Translations: [Shingrix] DEANGELO BATES MD [facility] 09-24-2023 influenza virus vaccine, unspecified formulation DEANGELO BATES MD [facility] 08-12-2023 zoster vaccine recombinant; Translations: [Shingrix] DEANGELO BATES MD [facility] 11-28-2021 SARS-CoV-2 (COVID-19 ) mRNA-1273 vaccine DEANGELO BATES MD [facility] 04-24-2021 SARS-CoV-2 (COVID-19 ) mRNA-1273 vaccine DEANGELO BATES MD [facility] 03-27-2021 SARS-CoV-2 (COVID-19 ) mRNA-1273 vaccine DEANGELO BATES MD [facility] 08-08-2017 influenza virus vaccine, unspecified formulation DEANGELO BATES MD [facility] 10-15-2015 influenza virus vaccine, unspecified formulation DEANGELO BATES MD [facility] 09-07-2014 influenza virus vaccine, unspecified formulation DEANGELO BATES MD [facility] 08-25-2013 influenza virus vaccine, unspecified formulation DEANGELO BATES MD [facility] 08-25-2013 tetanus toxoid, redu leyla diphtheria toxoid, and acellular pertussis vaccine, adsorbed DEANGELO BATES MD [facility] Payers Date Payer Category Payer Private Health Insurance [id number] 2025 Self-pay 2023 Unknown [id number] 2021 Unknown [id number] 1972 Unknown [id number] 2.16.8 [id number] 1972 Unknown [id number] 2.16.8 [id number] 1972 Unknown [id number] 2.16.8 [id number] 1972 Unknown [id number] 2.16. [id number] 1972 Unknown [id number] 2.16.8 [id number] Unknown [id number] 2.16.8 [id number] Social History Date Type Detail Facility Start: 06-03-2020 End: 05-24-2025 Never smoked tobacco (finding) [facility] Sex Assigned At Male [facility] Start: 05-03-2019 Sex Male (finding) [facility] Evaluation + Plan note Note Date & Type Note Facility Evaluation + Plan note No data available for this section [facility] Evaluation + Plan note Radiology Note Date & Type Note Facility Evaluation + Plan note Future Appointments Appointment Date:07/05/2025 08:00:00 AM Scheduled Provider:DEANGELO BATES MD Location:[facility] Appointment Type: OV Follow Up Future Scheduled TestsXR Shoulder Minimum 2 Views Left 12/25/24XR Spine Cervical AP/LAT 12/25/24CT Coronary Calcium Score w/o Contrast 06/06/25 [facility] Hospital Discharge instructions Note Date & Type Note Facility Hospital Discharge instructions No data available for this section [facility] Progress note Note Date & Type Note Facility Progress note No data available for this section [facility] Summary Purpose Family History No Family History Records Found No data available for this section No Family History Records Found No data available for this section No Family History Records Found No data available for this section No Family History Records Found Advance Directives No Advanced Directives Records FoundNo Advanced Directives Records FoundNo Advanced Directives Records FoundNo Advanced Directives Records Found Additional Source Comments Care Team (unrecognized sect ion and content) Care Team Personnel Name: DEANGELO BATES MD Position: P4 Physician - Primary Care Member Role: Primary Care Physician Address: Address: [address] [place] [address] Care Team Related Persons Name: ANGELA GREENWOOD Address: [place] [address] Name: ANGELA GREENWOOD Address: [place] [address] [place] Address: [place] [address] Name: CHRISTOPHER GREENWOOD Address: [address] Name: KEENAN GREENWOOD Address: [address] (unrecognized sect ion and content) No Status Records FoundNo Status Records FoundNo Status Records FoundNo Status Records Found INFORMATION SOURCE (unrecogn ized section and content) DATE CREATED AUTHOR 09/26/2023 [facility] DATE CREATED AUTHOR AUTHOR'S ORGANIZ ATION 07/12/2024 [facility] ([place] DATE CREATED AUTHOR AUTHOR'S ORGANIZ ATION 06/14/2025 [facility] DATE CREATED AUTHOR AUTHOR'S ORGANIZ ATION 06/23/[address] [facility] Patient Care team informatio n (unrecognized section and content) Care Team Personnel Name: DEANGELO BATES MD Position: P4 Physician - Primary Care Member Role: Primary Care Physician Address: Address: [address] [place] [address]- [place] Care Team Related Persons Name: DMITRYMARYAURE ANGELA Address: [address] [phone] Name: DMITRYBRUNILDA ANGELA L Address: [address] [phone] [place] Address: [place] [phone] Name: CHRISTOPHER GREENWOOD Address: [address] [phone] [place] Name: KEENAN GREENWOOD Address: [place] [phone] Care Team Personnel Name: DEANGELO BATES MD Position: P4 Physician - Primary Care Member Role: Primary Care Physician Address: Address: [address] [place] [address] Care Team Related Persons Name: DMITRYANGELA WORLEY Address: [address] [phone] Name: ANGELA GREENWOOD Address: [address] [id number] [place] Address: [place] [phone] Name: CHRISTOPHER GREENWOOD Address: [place] [phone] [place] Name: KEENAN GREENWOOD Address: [address] [phone] Care Team Personnel Name: DEANGELO BATES MD Position: P4 Physician - Primary Care Member Role: Primary Care Physician Address: [address] [place] [address] Telecom: Care Team Related Persons Name: DMITRYBRUNILDA ANGELA Name: ANTHONYANGELA LOONEY Molly FOR RECORDS PERTAINING TO PATIENTS WHO ARE OR HAVE BEEN ENROLLED IN A CHEMICAL DEPENDENCY/SUBSTANCEABUSE PROGRAM, SOME INFORMATION MAY BE OMITTED. This clinical summary was aggregated from multiple sources. Caution should be exercised in using it in the provision of clinical care. This summary normalizes information from multiple sources, and as a consequence, information in this document may materially change the coding, format and clinical context of patient data. In addition, data may be omitted in some cases. CLINICAL DECISIONS SHOULD BE BASED ON THE PRIMARY CLINICAL RECORDS. [employer] [facility]. provides no warranty or guarantee of the accuracy or completeness of information in this document.
--- NOTE | 2025-06-28 06:49 | CT_ITS ---
PROCEDURE: LIMITED CHEST CT CARDIAC ONLY 06/28/2025 REASON FOR EXAM: CAD SCREENING TECHNIQUE: LIMITED CHEST CT CARDIAC ONLY CONTRAST: None One or more dose reduction techniques were used (e.g., Automated exposure control, adjustment of the mA and/or kV according to patient size, use of iterative reconstruction technique). RADIATION DOSE SUMMARY: CTDlvol: 12.19 mGy DLP: 243.79 mGycm COMPARISON: None FINDINGS: Small benign-appearing mediastinal lymph nodes. No significant coronary artery calcification is seen. The lungs are clear. CT/Limited Chest CT Cardiac Only IMPRESSION: No significant coronary artery calcification seen. Reading Location: [facility]
--- NOTE | 2025-06-28 18:35 | CA.SCORE ---
Calcium Scoring Date of Study:: 06/28/25 Indications Indications: FH Coronary Calcium Scoring: High-resolution Computed Tomographic imaging of the chest was performed on [06/28/25 ], with particular attention paid to the coronary arteries. Images from the examination were analyzed for the presence and extent of coronary artery calcification , using coronary calcium quantification software. The patient tolerated the procedure well and there were no complications. The results of the coronary calcification analysis are provided below. Findings Coronary Artery Left Main (LM): 0 Left Anterior Descending (LAD): 0 Left Circumflex (LCX): 0 Right Coronary Artery (RCA): 0 Total Agatston Score: 0 Percentile Rankin Calcium Scoring Interpretation: Different methods to categorize the overall amount of coronary plaque. Overall amount CAC SIS Visual of coronary plaque P1 Mild -100 <2 1-2 vessels with mild amount of plaque P2 Moderate 101-300 3-4 1-2 vessels with moderate amount, 3 vessels with mild amount of plaque P3 Severe 301-999 5-7 3 vessels with moderate amount, 1 vessel with severe amount of plaque P4 Extensive >1000 >8 2-3 vessels with severe amount of plaque Conclusion: No Atherosclerotic plaquing noted.
== END 2025-06-28 23:59 | disposition home or self-care (01) ==
PROVIDERS: PCP Family Medicine; Referring Provider Nurse Practitioner Family; Visit Provider Nurse Practitioner Family
DX: Z82.49 Family history of ischemic heart disease and other diseases of the circulatory system (principal)
CPT/HCPCS: 75571; 76380